=== PATIENT | male | born 1975 | race Caucasian/White ===

== ENCOUNTER 2016-11-22 17:14 | Emergency (ER) | payer OTHER ==
[~2016-11-22] VITALS: Ht 182.9 cm; Wt 115.7 kg
[2016-11-22] MEDS ORDERED: PAROXETINE HCL20 M1 PO (18:27)
[2016-11-22] MEDS ORDERED: LANSOPRAZOLE30 M2 PO (18:27)
[2016-11-22] MEDS ORDERED: CRESTOR5 M1 PO (18:28)
[2016-11-22] MEDS ORDERED: DICYCLOMINE HCL10 M1 PO (18:28)
[2016-11-22] MEDS ORDERED: CLONAZEPAM1 M2 PO (18:28)
[2016-11-22] MEDS ORDERED: METFORMIN HCL500 M4 PO (18:28)
[2016-11-22] MEDS ORDERED: VITAMIN E400 UNI3 PO (18:29)
[2016-11-22] MEDS ORDERED: CYANOCOBAL1000 MCG/2 IM (18:29)
[2016-11-22] MEDS ORDERED: METOPROLOL SUCC25 M1 PO (18:29)
[2016-11-22] MEDS ORDERED: VITAMIN D5000 UNIT PO (18:30)
[2016-11-22] MEDS ORDERED: IMIPRAMINE HCL50 M1 (18:30)
--- NOTE | 2016-11-22 19:46 | ED GENERAL ADULT ---
History of Present Illness General Chief Complaint: General Adult Stated Complaint: DIARRHEA,L ARM NUMBNESS,TOOTH INFECTION Source: patient Exam Limitations: no limitations Allergies Coded Allergies: bupropion (From WELLBUTRIN) (RASH 11/22/16) egg (ALLERGY TESTED POSITIVE 11/22/16) esomeprazole (From NEXIUM) (DIZZY 11/22/16) imipramine (GI UPSET AND FELT SPACEY 11/22/16) milk (GI UPSET 11/22/16) wheat (ALLERGY TESTED POSITIVE 11/22/16) Uncoded Allergies: DUST MITES (06/05/11) Reconcile Medications Cholecalciferol (Vitamin D3) (Vitamin D) 5,000 UNIT TABLET 1 TAB PO DAILY SUPPLEMENT (Reported) Clonazepam 1 MG TABLET 1 TAB PO 4XDAILY PRN ANXIETY (Reported) Cyanocobalamin (Vitamin B-12) (Cyanocobalamin Injection) 1,000 MCG/ML VIAL 1 ML IM Q30D SUPPLEMENT (Reported) Dicyclomine HCl 10 MG CAPSULE 1 CAP PO BID IBS (Reported) Imipramine HCl (Unknown Strength) TABLET (Unknown Dose) UNKNOWN (Reported) Lansoprazole 30 MG CAPSULE.DR 1 CAP PO DAILY GI (Reported) Metformin HCl (Metformin HCl ER) 500 MG TAB.ER.24H 2 TAB PO BID DM (Reported) Metoprolol Succinate 25 MG TAB 1 TAB PO DAILY HEART/BP (Reported) Metronidazole (Flagyl) 500 MG TABLET 1 TAB PO TID Paroxetine HCl 20 MG TABLET 1 TAB PO DAILY MENTAL HEALTH (Reported) Rosuvastatin Calcium (Crestor) 5 MG TABLET 1 TAB PO DAILY CHOLESTEROL ( Reported) Vitamin E Acid Succinate (Vitamin E) 400 UNIT TABLET 1 TAB PO DAILY SUPPLEMENT (Reported) Triage Note: PT HERE WITH C/O DIARRHEA SINCE WEDNESDAY. PT STATES HE HAD ABD PAIN AND COULDN'T STOP BURPING. PT STATES HE THINKS HE MAY HAVE C-DIFF. PT WITH MULTIPLE COMPLAINTS IN TRIAGE. PT STATES HE ALSO HAD BAD TEETH AND IS WONDERING IF HE HAS AN INFECTION. Triage Nurses Notes Reviewed? yes HPI: This patient is a 41-year-old male with a past medical history including C. difficile who presented to the emergency department today for evaluation of multiple complaints. The patient reported that he was mowing the lawn on Wednesday and after that time he developed abdominal cramping. He reported that since Wednesday he has had multiple episodes of watery diarrhea every day. He is unable to quantify how many episodes he has a shape. He reported 6 out of 10 abdominal cramping. He denied any constipation. He denied any blood in the stool. The patient also reported that he feels like he may have a dental infection. He has carious dentition and is worried this could be causing his symptoms. He reported intermittent nausea with one episode of vomiting on Wednesday. No blood in the vomitus. The patient denied any difficulty breathing. He did report that he gets intermittent pain in his epigastrium. The patient denied any fevers, chills, or back pain. (EMILEE CARLOS PA-C) Vital Signs & Intake/Output Vital Signs & Intake/Output Vital Signs Date Time Temp Pulse Resp B/P B/P Pulse O2 O2 Flow FiO2 Mean Ox Delivery Rate 11/22 2125 98.2 101 18 133/60 98 Room Air 11/22 2016 98.7 103 18 126/75 97 Room Air 11/22 1942 98.0 107 20 124/82 98 Room Air 11/22 1728 97.7 100 16 150/93 98 Room Air ED Intake and Output 11/23 0000 11/22 1200 Intake Total Output Total Balance Patient 255 lb Weight Weight Reported by Patient Measurement Method Past History Travel History Traveled to [place] past 21 day No Medical History Any Pertinent Medical History? see below for history Cardiovascular: HEART PALPATATIONS Gastrointestinal: irritable bowel syndrome, HERNIA, C. difficile colitis Psychiatric: anxiety Endocrine: diabetes Surgical History Surgical History: non-contributory Psychosocial History What is your primary language [place] R[place] Tobacco Use: Quit >30 days ago ETOH Use: denies use Illicit Drug Use: denies illicit drug use Family History Hx Contributory? No (EMILEE CARLOS PA-C) Review of Systems Review of Systems Constitutional: Reports: no symptoms. EENTM: Reports: see HPI. Respiratory: Reports: no symptoms. Cardiovascular: Reports: no symptoms. GI: Reports: see HPI. Genitourinary: Reports: no symptoms. Musculoskeletal: Reports: no symptoms. Skin: Reports: no symptoms. Neurological/Psychological: Reports: no symptoms. All Other Systems: Reviewed and Negative (EMILEE CARLOS PA-C) Physical Exam Physical Exam General Appearance: well developed/nourished, alert, awake, anxious Comments: Well-developed well-nourished person in no acute distress HEENT: Carious dentition, head normocephalic, moist mucous membranes PERRLA bilaterally Neck: Supple, no lymphadenopathy, normal range of motion without pain or tenderness Back: Normal gait Cardiovascular: Regular rate and rhythm with no murmurs, rubs, or gallops Respiratory: Chest nontender. No respiratory distress. Breath sounds clear to auscultation bilaterally with no wheezes, rales, rhonchi Abdomen: Soft and nondistended. No organomegaly. Normoactive bowel sounds. Mild diffuse tenderness to palpation with no rebound or guarding. No peritoneal signs. Extremity: Normal and equal pulses. Neuro: Alert oriented x3, cranial nerves II through XII grossly intact. Skin: No appreciable rash on exposed skin, skin is warm and dry. Psych: Mood and affect is normal Core Measures ACS in differential dx? Yes CVA/TIA Diagnosis: No Severe Sepsis Present: No Septic Shock Present: No (BREANNA GIRON,EMILEE) Progress Differential Diagnoses I considered the following diagnoses in my evaluation of the patient: [C. difficile colitis, inflammatory bowel disease, irritable bowel syndrome, mesenteric ischemia, appendicitis, cholelithiasis, cholecystitis, ACS, GERD, anxiety, gastroenteritis, dental infection] Diagnostic Imaging: Viewed by Me: Radiology Read. Discussed w/RAD: Radiology Read. CXR Impression: PATIENT: JOJO SALAS PRESENT AGE: 41 PATIENT ACCOUNT NO: [id number] : 76 LOCATION: [facility] ORDERING PHYSICIAN: EMILEE CARLOS PA-C SERVICE DATE: 11/22/16 EXAM TYPE: RAD - XRY-CHEST XRAY, PA AND LATERAL EXAMINATION: XR CHEST CLINICAL INFORMATION: Left arm pain and tingling COMPARISON: 08/29/2008 x-ray TECHNIQUE: 2 views of the chest were obtained. FINDINGS: The cardiomediastinal silhouette and pulmonary vascularity are within normal limits. The lungs are clear. The costophrenic angles are sharp. No pleural effusions or pneumothorax. The visualized bony thorax is unremarkable. IMPRESSION: Normal chest x-ray. DICTATED BY: FAYE WHITAKER MD DATE/TIME DICTATED:11/22/162000 PRODUCTION COUNTER:JULIETA DATE/TIME TRANSCRIBED:11/22/162000 CONFIDENTIAL, DO NOT COPY WITHOUT APPROPRIATE AUTHORIZATION. <Electronically signed in Other Vendor System> SIGNED BY: FAYE WHITAKER MD 11/22/162004 Initial ED EKG: normal axis, normal intervals, no ST T wave changes, sinus tachycardia, 116 bpm (EMILEE CARLOS PA-C) Plan of Care: Orders Procedure Date/time Status FingerStick- Glucose 11/23 1911 Active RAPID VIRAL INFLUENZA A 11/23 1911 Complete TROPONIN LEVEL 11/23 1911 Complete LYME TITRE 11/23 1911 Complete LIPASE 11/23 1911 Complete DIRECT BILIRUBIN 11/23 1911 Complete COMPREHENSIVE METABOLIC PANEL 11/23 1911 Complete CBC WITHOUT DIFFERENTIAL 11/23 1911 Complete AMYLASE 11/23 1911 Complete ACETONE 11/23 1911 Complete EKG 11/22 1730 Active Laboratory Tests 11/22/162051: Lyme Disease Antibody 0.25 11/22/162003: Anion Gap 14, Estimated GFR > 60, BUN/Creatinine Ratio 11.4, Glucose 226 H, Calcium 9.0, Total Bilirubin 0.6, Direct Bilirubin 0.2, AST 37, ALT 64, Alkaline Phosphatase 89, Troponin I < 0.01, Total Protein 7.0, Albumin 4.2, Globulin 2.8, Albumin/Globulin Ratio 1.5, Amylase 43, Lipase 147, CBC w Diff NO MAN DIFF REQ, RBC 5.25, MCV 84.9, MCH 28.9, RDW 13.0, MPV 7.6, Gran % 70.8, Lymphocytes % 20.3 L, Monocytes % 7.9, Eosinophils % 0.6, Basophils % 0.4, Absolute Granulocytes 5.8, Absolute Lymphocytes 1.7, Absolute Monocytes 0.6, Absolute Eosinophils 0, Absolute Basophils 0, PUBS MCHC 34.0, Acetone Level NEGATIVE Microbiology 11/22 1941 NASOPHARYN: Influenza Virus A & B Rapid Smear - COMP 11/23 1911 STOOL: Clostridium difficile Toxin A & B - CAN Cancelled: PT.DISHARGED. 11/23 1911 STOOL: Stool Culture - CAN Cancelled: PT.DISHARGED. Departure Departure Disposition: HOME OR SELF CARE Condition: Stable Clinical Impression Primary Impression: Diarrhea Qualifiers: Diarrhea type: unspecified type Qualified Code: R19.7 - Diarrhea, unspecified Referrals: RAY TERRY DO (PCP/Family) Additional Instructions: Take antibiotics as prescribed and for the full duration. Please follow-up with your booky as discussed. Please also follow-up with your primary care physician. Return for any worsening symptoms or concerns. Departure Forms: Customer Survey General Discharge Information Prescriptions: Current Visit Scripts Metronidazole (Flagyl) 1 TAB PO TID #30 TAB (EMILEE CARLOS PA-C) PA/DRAPERY OPERATOR Co-Sign Statement Statement: ED Attending supervision documentation- [] I saw and evaluated the patient. I have also reviewed all the pertinent lab results and diagnostic results. I agree with the findings and the plan of care as documented in the PA's/DRAPERY OPERATOR's documentation. [x] I have reviewed the ED Record and agree with the PA's/DRAPERY OPERATOR's documentation. [] Additions or exceptions (if any) to the PAs/DRAPERY OPERATOR's note and plan are summarized below: [] (JOHN FINLEY,MADDY Ashby) Critical Care Note Critical Care Note Critical Care Time: non-applicable (EMILEE CARLOS PA-C)
--- NOTE | 2016-11-22 20:05 | RADIOLOGY REPORT ---
EXAMINATION: XR CHEST CLINICAL INFORMATION: Left arm pain and tingling COMPARISON: 08/29/2008 x-ray TECHNIQUE: 2 views of the chest were obtained. FINDINGS: The cardiomediastinal silhouette and pulmonary vascularity are within normal limits. The lungs are clear. The costophrenic angles are sharp. No pleural effusions or pneumothorax. The visualized bony thorax is unremarkable. IMPRESSION: Normal chest x-ray.
[2016-11-22 20:32] LABS: ABSOLUTE BASOPHIL COUNT 0 /CUMM (0.0-0.2); ABSOLUTE EOSINOPHIL COUNT 0 /CUMM (0.0-0.7); ABSOLUTE GRANULOCYTE CT 5.8 /CUMM (1.4-6.5); ABSOLUTE LYMPH COUNT 1.7 /CUMM (1.2-3.4); ABSOLUTE MONOCYTE COUNT 0.6 /CUMM (0.10-0.60); BASOPHIL % 0.4 % (0.0-2.0); EOSINOPHIL % 0.6 % (0-5); GRANULOCYTE % 70.8 % (42.2-75.2); HEMATOCRIT 44.6 % (42-52); MEAN CORPUSCULAR HGB 28.9 PG (27.0-31.0); MEAN CORPUSCULAR VOLUME 84.9 FL (80.0-94.0); MEAN PLATELET VOLUME 7.6 FL (7.4-10.4); PLATELET COUNT 214 /CUMM (130-400); RED BLOOD CELL CT 5.25 /CUMM (4.70-6.10); WHITE BLOOD CELL COUNT 8.2 /CUMM (4.8-10.8)
[2016-11-22] MEDS ORDERED: FLAGYL500 MG PO (21:18)
[2016-11-22 21:26] VITALS: BP 133/60
== END 2016-11-22 21:57 ==
LOC: ERH 17:14
PROVIDERS: Physician Assistant
DX: R19.7 Diarrhea, unspecified (principal)
CPT/HCPCS: 86618; 87045; 87804; 87804-59; 93005; 93010; 96360

== ENCOUNTER 2017-01-08 10:32 | Emergency (ER) | payer OTHER ==
[~2017-01-08] VITALS: Ht 182.9 cm; Wt 102.1 kg
[~2017-01-08 10:32] MED LIST: CLONAZEPAM1 M2 PO; CRESTOR5 M1 PO; CYANOCOBAL1000 MCG/2 IM; DICYCLOMINE HCL10 M1 PO; FLAGYL500 MG PO; IMIPRAMINE HCL50 M1; LANSOPRAZOLE30 M2 PO; METFORMIN HCL500 M4 PO; METOPROLOL SUCC25 M1 PO; PAROXETINE HCL20 M1 PO; VITAMIN D5000 UNIT PO; VITAMIN E400 UNI3 PO
--- NOTE | 2017-01-08 10:51 | ED GI/GU/ABDOMINAL COMPLAINT ---
History of Present Illness General Chief Complaint: Abdominal Pain/Flank Pain Stated Complaint: ABD PAIN, TOOTH ?INFECTION Source: patient, old records Exam Limitations: no limitations Vital Signs & Intake/Output Vital Signs & Intake/Output ED Intake and Output 01/09 0000 01/08 1200 Intake Total 1000 Output Total Balance 1000 Intake, IV 1000 Patient 225 lb Weight Weight Reported by Patient Measurement Method Allergies Coded Allergies: bupropion (From WELLBUTRIN) (RASH 01/08/17) egg (ALLERGY TESTED POSITIVE 01/08/17) esomeprazole (From NEXIUM) (DIZZY 01/08/17) imipramine (GI UPSET AND FELT SPACEY 01/08/17) milk (GI UPSET 01/08/17) wheat (ALLERGY TESTED POSITIVE 01/08/17) Uncoded Allergies: DUST MITES (06/05/11) Reconcile Medications Cholecalciferol (Vitamin D3) (Vitamin D) 5,000 UNIT TABLET 1 TAB PO DAILY SUPPLEMENT (Reported) Clonazepam 1 MG TABLET 1 TAB PO 4XDAILY PRN ANXIETY (Reported) Cyanocobalamin (Vitamin B-12) (Cyanocobalamin Injection) 1,000 MCG/ML VIAL 1 ML IM Q30D SUPPLEMENT (Reported) Dicyclomine HCl 10 MG CAPSULE 1 CAP PO BID IBS (Reported) Imipramine HCl (Unknown Strength) TABLET (Unknown Dose) UNKNOWN (Reported) Lansoprazole 30 MG CAPSULE.DR 1 CAP PO DAILY GI (Reported) Metformin HCl (Metformin HCl ER) 500 MG TAB.ER.24H 2 TAB PO BID DM (Reported) Metoprolol Succinate 25 MG TAB 1 TAB PO DAILY HEART/BP (Reported) Metronidazole (Flagyl) 500 MG TABLET 1 TAB PO TID Paroxetine HCl 20 MG TABLET 1 TAB PO DAILY MENTAL HEALTH (Reported) Rosuvastatin Calcium (Crestor) 5 MG TABLET 1 TAB PO DAILY CHOLESTEROL ( Reported) Tramadol HCl 50 MG TABLET 1 TAB PO BIDP PRN PAIN Vitamin E Acid Succinate (Vitamin E) 400 UNIT TABLET 1 TAB PO DAILY SUPPLEMENT (Reported) Triage Note: PT TO ED FOR DIFFUSE ABD PAIN THAT STARTED IN OCTOBER, SEEN HERE IN OCTOBER OR NOVEMBER AND PUT ON FLAGYL JUST IN CASE IT WAS C.DIFF. HX OF IBS. +DIARRHEA, +NAUSEA, -VOMITING. WAS SUPPOSED TO SEE DR. LOZOYA LAST WEEK, BUT "HE CANCELED DUE TO AN EMERGENCY". +CHILLS, HAS BEEN TAKING IBS MEDS WITHOUT RELIEF. ALSO REPORTS LOST 30 POUNDS SINCE LAST MONTH. Triage Nurses Notes Reviewed? yes Onset: Abrupt Duration: day(s): (30) Timing: multiple episodes today Quality/Severity: moderate, severe Location: generalized abdomen Prior Abdominal Problems: similar symptoms Associated Symptoms: abdominal pain, nausea/vomiting HPI: This is a 41-year-old male who presents here with chief complaint of abdominal pain, weight loss, nausea and lack of appetite for the past one month. He states he has lost 30 pounds. He is only eating brown rise, carrots and a banana per day. He also eats a little bit of chicken. Patient was due to see Dr. Luong on the and , both points which were canceled secondary to emergencies. He is do not see him in January. Patient has a history of acid reflux. He states he is compliant with his medications. Denies any fever or chills. Last bowel movement was yesterday. He was seen here one month ago for presumptive C. difficile colitis which she's had twice in the past before. He states C. difficile workup was negative this time. Past History Travel History Traveled to [place] past 21 day No Medical History Any Pertinent Medical History? see below for history Cardiovascular: HEART PALPATATIONS Gastrointestinal: GERD, irritable bowel syndrome, UMBILICAL HERNIA HIATAL HERNIA C. difficile colitis Psychiatric: anxiety Endocrine: diabetes Surgical History Surgical History: BILATERAL INGUINAL HERNIA ANAL FISSURE SURGERY ([facility]) Psychosocial History What is your primary language Polish Tobacco Use: Quit >30 days ago ETOH Use: denies use Illicit Drug Use: denies illicit drug use Family History Hx Contributory? No Review of Systems Review of Systems Constitutional: Denies: chills, fever. EENTM: Reports: no symptoms. Respiratory: Reports: no symptoms. Cardiovascular: Reports: no symptoms. GI: Reports: abdominal pain, nausea, vomiting. Genitourinary: Reports: no symptoms. Musculoskeletal: Reports: no symptoms. Skin: Reports: no symptoms. Neurological/Psychological: Reports: anxiety. Hematologic/Endocrine: Denies: bruising, bleeding, polyuria, polydipsia. Immunologic/Allergic: Reports: no symptoms. All Other Systems: Reviewed and Negative Physical Exam Physical Exam General Appearance: well developed/nourished, alert, awake, anxious, mild distress Head: atraumatic, active bleeding Eyes: Bilateral: normal appearance, PERRL, EOMI. Ears, Nose, Throat, Mouth: hearing grossly normal, moist mucous membrane Neck: normal inspection, supple, full range of motion Respiratory: normal breath sounds, chest non-tender, no respiratory distress Cardiovascular: regular rate/rhythm Peripheral Pulses: 2+ radial (R), 2+ radial (L) Gastrointestinal: normal bowel sounds, soft, tenderness (diffuse), VOLUNTARY GUARDING Back: normal inspection, normal range of motion Extremities: normal range of motion Neurologic/Psych: no motor/sensory deficits, awake, alert, oriented x 3, ANXIOUS Core Measures ACS in differential dx? No Severe Sepsis Present: No Septic Shock Present: No Progress Differential Diagnosis: gastritis, hepatitis, hernia, peptic ulcer, PUD/GERD, SBO, ESOPHAGITIS, MECHANICAL OBSTRUCTION, MALIGNANCY, POOR DENTITION, GINGIVITIS Plan of Care: Orders Procedure Date/time Status URINE DRUGS OF ABUSE 01/08 1218 Complete URINALYSIS 01/08 1057 Complete MAGNESIUM 01/08 1057 Complete LIPASE 01/08 1057 Complete COMPREHENSIVE METABOLIC PANEL 01/08 1057 Complete CBC WITHOUT DIFFERENTIAL 01/08 1057 Complete Laboratory Tests 01/08/17 1240: Urine Opiates Screen < 100.00, Methadone Screen < 40, Barbiturate Screen < 60, Ur Phencyclidine Scrn < 6.00, Amphetamines Screen < 100, U Benzodiazepines Scrn 130, Urine Cocaine Screen < 50, Urine Cannabis Screen < 5.00, Urine Color YEL, Urine Clarity CLEAR, Urine pH 6.0, Ur Specific [place] 1.010, Urine Protein NEG, Urine Ketones NEG, Urine Nitrite NEG, Urine Bilirubin NEG, Urine Urobilinogen 0.2, Ur Leukocyte Esterase NEG, Ur Microscopic EXAM NOT REQUIRED, Urine Hemoglobin NEG, Urine Glucose NEG 01/08/17 1118: Anion Gap 10, Estimated GFR > 60, BUN/Creatinine Ratio 15.0, Glucose 124 H, Calcium 9.4, Magnesium 1.8, Total Bilirubin 0.7, AST 20, ALT 42, Alkaline Phosphatase 60, Total Protein 6.6, Albumin 4.3, Globulin 2.3, Albumin/Globulin Ratio 1.9, Lipase 237, CBC w Diff NO MAN DIFF REQ, RBC 4.84, MCV 86.0, MCH 29.1, RDW 13.4, MPV 8.4, Gran % 67.2, Lymphocytes % 23.9, Monocytes % 6.7, Eosinophils % 1.2, Basophils % 1.0, Absolute Granulocytes 4.3, Absolute Lymphocytes 1.5, Absolute Monocytes 0.4, Absolute Eosinophils 0.1, Absolute Basophils 0.1, PUBS MCHC 33.8 Diagnostic Imaging: Viewed by Me: CT Scan. Discussed w/RAD: CT Scan. Radiology Impression: PATIENT: JOJO SALAS PRESENT AGE: 41 PATIENT ACCOUNT NO: [id number] : 76 LOCATION: [facility] ORDERING PHYSICIAN: KAYE WOODALL MD SERVICE DATE: 01/08/17 EXAM TYPE: CAT - CT ABD & PELVIS W IV CONTRAST EXAMINATION: CT ABDOMEN AND PELVIS WITH CONTRAST CLINICAL INFORMATION: Diffuse abdominal tenderness, constipation. COMPARISON: CT abdomen and pelvis 05/15/2011 TECHNIQUE: Multidetector volumetric imaging was performed of the abdomen and pelvis before and after the IV administration of 94 mL of Optiray 320 intravenous contrast. Sagittal and coronal reformatted images were obtained on the technologist's workstation. DLP: 452.34 mGy-cm FINDINGS: LUNG BASES: The visualized lung bases are unremarkable. LIVER, GALLBLADDER, AND BILIARY TREE: The liver is normal in size, shape, and attenuation. No focal hepatic lesion or biliary ductal dilatation is present. The gallbladder is unremarkable with no evidence of radiopaque gallstones, gallbladder wall thickening, or obvious pericholecystic inflammatory changes. PANCREAS: No pancreatic ductal dilatation, peripancreatic stranding or pancreatic mass identified. SPLEEN: Unremarkable. ADRENAL GLANDS: Unremarkable. KIDNEYS AND URETERS: The kidneys are normal in size, shape, and attenuation. No hydronephrosis, hydroureter, or calculi seen. No perinephric stranding. BLADDER: Unremarkable. GASTROINTESTINAL TRACT: The small and large bowel are unremarkable. There is a loop of bowel within a periumbilical hernia, there is no upstream dilatation of the bowel The appendix is unremarkable. ABDOMINAL WALL : There is a periumbilical hernia containing a loop of nondilated bowel, there is no upstream dilatation of the bowel. LYMPH NODES: No enlarged abdominal or pelvic lymph nodes. VASCULAR: Unremarkable. PELVIC VISCERA: The prostate and seminal vesicles are unremarkable. OSSEOUS STRUCTURES: Unremarkable. IMPRESSION: Small mouthed periumbilical hernia containing a loop of nondilated bowel. DICTATED BY: OSWALDO DAWSON MD DATE/TIME DICTATED:01/08/171431 FIREMAN:JULIETA DATE/TIME TRANSCRIBED:01/08/171431 CONFIDENTIAL, DO NOT COPY WITHOUT APPROPRIATE AUTHORIZATION. <Electronically signed in Other Vendor System> SIGNED BY: OSWALDO DAWSON MD 01/08/17 1444 Initial ED EKG: none Departure Departure Time of Disposition: 1445 Disposition: HOME OR SELF CARE Condition: Stable Clinical Impression Primary Impression: Abdominal pain Secondary Impressions: Gingivitis Referrals: DEVORA FINLEY,RAY KAUFMAN DO (PCP/Family) Additional Instructions: follow up with your dentist and with Dr. Lozoya. Departure Forms: Customer Survey General Discharge Information Prescriptions: Current Visit Scripts Tramadol HCl 1 TAB PO BIDP PRN PAIN #10 TAB
[2017-01-08 11:25] LABS: ABSOLUTE BASOPHIL COUNT 0.1 /CUMM (0.0-0.2); ABSOLUTE EOSINOPHIL COUNT 0.1 /CUMM (0.0-0.7); ABSOLUTE GRANULOCYTE CT 4.3 /CUMM (1.4-6.5); ABSOLUTE LYMPH COUNT 1.5 /CUMM (1.2-3.4); ABSOLUTE MONOCYTE COUNT 0.4 /CUMM (0.10-0.60); EOSINOPHIL % 1.2 % (0-5); GRANULOCYTE % 67.2 % (42.2-75.2); HEMATOCRIT 41.7 % (42-52); MEAN CORPUSCULAR HGB 29.1 PG (27.0-31.0); MEAN CORPUSCULAR HGB CONC 33.8 G/DL (33.0-37.0); MEAN PLATELET VOLUME 8.4 FL (7.4-10.4); PLATELET COUNT 179 /CUMM (130-400); RBC DISTRIBUTION WIDTH 13.4 % (11.5-14.5); RED BLOOD CELL CT 4.84 /CUMM (4.70-6.10); WHITE BLOOD CELL COUNT 6.4 /CUMM (4.8-10.8)
--- NOTE | 2017-01-08 14:44 | CT SCAN REPORT ---
EXAMINATION: CT ABDOMEN AND PELVIS WITH CONTRAST CLINICAL INFORMATION: Diffuse abdominal tenderness, constipation. COMPARISON: CT abdomen and pelvis 05/15/2011 TECHNIQUE: Multidetector volumetric imaging was performed of the abdomen and pelvis before and after the IV administration of 94 mL of Optiray 320 intravenous contrast. Sagittal and coronal reformatted images were obtained on the technologist's workstation. DLP: 452.34 mGy-cm FINDINGS: LUNG BASES: The visualized lung bases are unremarkable. LIVER, GALLBLADDER, AND BILIARY TREE: The liver is normal in size, shape, and attenuation. No focal hepatic lesion or biliary ductal dilatation is present. The gallbladder is unremarkable with no evidence of radiopaque gallstones, gallbladder wall thickening, or obvious pericholecystic inflammatory changes. PANCREAS: No pancreatic ductal dilatation, peripancreatic stranding or pancreatic mass identified. SPLEEN: Unremarkable. ADRENAL GLANDS: Unremarkable. KIDNEYS AND URETERS: The kidneys are normal in size, shape, and attenuation. No hydronephrosis, hydroureter, or calculi seen. No perinephric stranding. BLADDER: Unremarkable. GASTROINTESTINAL TRACT: The small and large bowel are unremarkable. There is a loop of bowel within a periumbilical hernia, there is no upstream dilatation of the bowel The appendix is unremarkable. ABDOMINAL WALL: There is a periumbilical hernia containing a loop of nondilated bowel, there is no upstream dilatation of the bowel. LYMPH NODES: No enlarged abdominal or pelvic lymph nodes. VASCULAR: Unremarkable. PELVIC VISCERA: The prostate and seminal vesicles are unremarkable. OSSEOUS STRUCTURES: Unremarkable. IMPRESSION: Small mouthed periumbilical hernia containing a loop of nondilated bowel.
[2017-01-08] MEDS ORDERED: TRAMADOL HCL50 M1 PO (14:56)
[2017-01-08 14:59] VITALS: BP 115/74
== END 2017-01-08 15:00 ==
LOC: ERH 10:32
PROVIDERS: Emergency Medicine
DX: R10.84 Generalized abdominal pain (principal); K05.10 Chronic gingivitis, plaque induced
CPT/HCPCS: 74177; 80307; 81003; 96374; 96375; J2405